=== PATIENT | male | born 1940 | race Caucasian/White ===

== ENCOUNTER 2024-04-01 11:32 | Inpatient (IN) | payer BC ==
[~2024-04-01] VITALS: Ht 170.2 cm; Wt 99.9 kg
[2024-04-01] MEDS: SODIUM CHLORIDE 0.9% (SEPSIS BOLUS) IV ONE (12:09)
[2024-04-01] MEDS ORDERED: VANCOMYCIN 1000MG/250ML 250 ML IV SCH (12:15)
[2024-04-01] MEDS: VANCOMYCIN 1G PREMIX 200 ML IV NR (12:23)
[2024-04-01] MEDS: ONDANSETRON HCL 4MG/2ML INJ IV STA (12:23)
[2024-04-01 13:25] LABS: LACTIC ACID 3.2 mmol/L (0.4-2.0)
[2024-04-01 13:29] LABS: PROTHROMBIN TIME 52.1 sec (9.6-11.0)
[2024-04-01 13:47] LABS: INR 5.3
[2024-04-01] MEDS: PIPERACILLIN/TAZO 3.375G/100ML 100 ML IV SCH (14:19)
[2024-04-01 18:02] LABS: BASOPHILS % 0.6 % (0.0-2.0); EOSINOPHILS % 0.7 % (0.0-5.0); HEMATOCRIT. 45.2 % (42.0-52.0); HEMOGLOBIN. 14.2 g/dL (14.0-18.0); LYMPHOCYTES % 16.1 % (20.0-50.0); MEAN CORPUSCULAR HEMOGLOBIN 27.6 pg (28.0-32.0); MEAN CORPUSCULAR HGB CONC 31.4 g/dL (31.0-37.0); MEAN CORPUSCULAR VOLUME 88.1 fL (80.0-94.0); MEAN PLATELET VOLUME 9.2 fl (7.4-10.4); MONOCYTES % 7.8 % (2.0-8.0); NEUTROPHILS % 74.8 % (40.0-76.0); PLATELET 200 x1000/uL (130-400); RED BLOOD CELL COUNT 5.13 mill/uL (4.7-6.1); RED CELL DISTRIBUTION WIDTH 14.1 % (11.6-14.6); WHITE BLOOD COUNT 10.8 x1000/uL (4.5-11.0)
[2024-04-01 18:13] LABS: CHLORIDE 102 mEq/L (98-107); POTASSIUM 4.7 mEq/L (3.5-5.1); SODIUM 137 mEq/L (136-145)
[2024-04-01 18:14] LABS: CARBON DIOXIDE 24 mEq/L (21-32)
[2024-04-01 18:19] LABS: GLUCOSE 98 mg/dL (70-105); UREA NITROGEN BLOOD 60 mg/dL (9-23)
[2024-04-01 18:20] LABS: TROPONIN I HIGH SENSITIVITY 32 ng/L (3.0-53)
[2024-04-01 18:34] LABS: CREATININE 7.3 mg/dL (0.6-1.3)
[2024-04-01 21:15] LABS: CLARITY URINE CLEAR (CLEAR); COLOR URINE YELLOW (YELLOW); GLUCOSE URINE 2+ (NEGATIVE); KETONES URINE NEGATIVE (NEGATIVE); LEUKOCYTE ESTERASE URINE NEGATIVE (NEGATIVE); NITRITE URINE NEGATIVE (NEGATIVE); OCCULT BLOOD URINE NEGATIVE (NEGATIVE); PH URINE 7.5 (4.5-8.0); PROTEIN URINE 2+ (NEGATIVE); SPECIFIC GRAVITY URINE 1.013 (1.005-1.030); UROBILINOGEN URINE 0.2 E.U./dL (0.2-1.0)
[2024-04-01 21:30] LABS: BACTERIA URINE NONE SEEN; RBC URINE NONE SEEN /hpf (0-2); SQUAMOUS EPITHELIAL CELL URINE RARE /lpf (RARE/1+); WBC URINE 0-2 /hpf (0-2)
[2024-04-01 21:46] LABS: TROPONIN I HIGH SENSITIVITY 36 ng/L (3.0-53)
[2024-04-01] MEDS ORDERED: IPRATROPIUM/ALBUTEROL 0.5-3(2.5)MG/3ML NEB HHN PRN (22:00)
[2024-04-01] MEDS ORDERED: ONDANSETRON HCL 4MG/2ML INJ IV PRN (22:00)
[2024-04-01] MEDS ORDERED: ACETAMINOPHEN 325MG TABLET PO PRN (22:00)
[2024-04-01] MEDS ORDERED: HYDROCODONE/ACETAMINOPHEN 5/325MG TABLET PO PRN (22:00)
[2024-04-01] MEDS ORDERED: ENOXAPARIN 30MG/0.3ML SYR SUBCUT SCH (22:15)
[2024-04-01 23:45] VITALS: BP 119/62; PULSE 73; RESP 19; TEMP 36.3068
[2024-04-02] VITALS (8 sets, daily range): BP systolic 118–151; BP diastolic 64–74; PULSE 64–82; RESP 17–18; TEMP 36.114–36.61404; O2SAT 97–99
[2024-04-02] MEDS ORDERED: TAMS-11 PO (03:43)
[2024-04-02] MEDS ORDERED: CHOL400D7 PO (03:43)
[2024-04-02] MEDS ORDERED: EMPA10TA PO (03:43)
[2024-04-02] MEDS ORDERED: SERT-112 PO (03:43)
[2024-04-02] MEDS ORDERED: POTA-354 PO (03:43)
[2024-04-02] MEDS ORDERED: SEVE800T8 PO (03:43)
[2024-04-02] MEDS ORDERED: FURO80TA3 PO (03:43)
[2024-04-02] MEDS ORDERED: LOVA40TA73 PO (03:43)
[2024-04-02] MEDS ORDERED: WARF-53 PO (03:43)
[2024-04-02] MEDS ORDERED: CLOP75TA33 PO (03:43)
[2024-04-02] MEDS ORDERED: LEVO50TA8 PO (03:43)
[2024-04-02] MEDS ORDERED: FINA5TAB11 PO (03:43)
[2024-04-02] MEDS ORDERED: NALOXONE HCL 0.4MG/ML VIAL IV PRN (08:00)
[2024-04-02] MEDS ORDERED: ENOXAPARIN 30MG/0.3ML SYR SUBCUT SCH (09:00)
[2024-04-02] MEDS ORDERED: DEXTROSE 50% WATER 50ML SYRINGE IV PRN (11:00)
[2024-04-02] MEDS: BLOOD SUGAR DIAGNOSTIC STRIP TEST SCH (12:10)
[2024-04-02] MEDS: INSULIN LISPRO 100 UNITS/ML SUBCUT SCH (12:40)
[2024-04-02 12:48] LABS: BASOPHILS % 0.7 % (0.0-2.0); EOSINOPHILS % 1.8 % (0.0-5.0); HEMATOCRIT. 42.8 % (42.0-52.0); HEMOGLOBIN. 13.8 g/dL (14.0-18.0); LYMPHOCYTES % 13.1 % (20.0-50.0); MEAN CORPUSCULAR HEMOGLOBIN 28.1 pg (28.0-32.0); MEAN CORPUSCULAR HGB CONC 32.3 g/dL (31.0-37.0); MEAN CORPUSCULAR VOLUME 87.2 fL (80.0-94.0); MEAN PLATELET VOLUME 9.4 fl (7.4-10.4); MONOCYTES % 7.3 % (2.0-8.0); NEUTROPHILS % 77.1 % (40.0-76.0); PLATELET 178 x1000/uL (130-400); RED BLOOD CELL COUNT 4.91 mill/uL (4.7-6.1); WHITE BLOOD COUNT 9.6 x1000/uL (4.5-11.0)
[2024-04-02 13:13] LABS: CALCIUM 9.3 mg/dL (8.7-10.4); CREATINE KINASE MB FRACTION 5.6 ng/mL (0.5-3.6)
[2024-04-02 14:15] LABS: CREATININE 7.8 mg/dL (0.6-1.3)
[2024-04-02] MEDS: SERTRALINE HCL 100MG TABLET PO SCH (15:36)
[2024-04-02 15:54] LABS: *AMPHETAMINES SCREEN URINE NEGATIVE (NEGATIVE); *BARBITURATES SCREEN URINE NEGATIVE (NEGATIVE); *BENZODIAZEPINES SCREEN URINE NEGATIVE (NEGATIVE); *COCAINE SCREEN URINE NEGATIVE (NEGATIVE); METHADONE URINE SCREEN NEGATIVE (NEGATIVE)
[2024-04-02 15:55] LABS: CANNABINOID URINE SCREEN NEGATIVE (NEGATIVE); ECSTASY MDMA SCREEN URINE NEGATIVE (NEGATIVE); OPIATES URINE SCREEN NEGATIVE (NEGATIVE); PHENCYCLIDINE URINE SCREEN NEGATIVE (NEGATIVE)
[2024-04-02] MEDS: PHYTONADIONE 10MG/ML INJ SUBCUT NR (18:00)
[2024-04-02] MEDS: FINASTERIDE 5MG TABLET PO SCH (18:28)
[2024-04-02] MEDS: TAMSULOSIN HCL 0.4MG SR CAPSULE PO SCH (18:31)
[2024-04-02 21:39] LABS: CORTISOL 17.9 ucg/dL
[2024-04-02 21:43] LABS: TRIOIODOTHYRONINE TOTAL 0.36 ng/ml (0.60-1.81)
[2024-04-02] MEDS: ATORVASTATIN CALCIUM 40MG TABLET PO SCH (22:23)
[2024-04-03] VITALS (11 sets, daily range): BP systolic 105–136; BP diastolic 68–94; PULSE 72–78; RESP 16–20; TEMP 36.28068–36.50292; O2SAT 97–99
[2024-04-03 06:06] LABS: BASOPHILS % 0.7 % (0.0-2.0); EOSINOPHILS % 2.4 % (0.0-5.0); HEMATOCRIT. 40.8 % (42.0-52.0); HEMOGLOBIN. 12.9 g/dL (14.0-18.0); LYMPHOCYTES % 13.6 % (20.0-50.0); MEAN CORPUSCULAR HEMOGLOBIN 27.8 pg (28.0-32.0); MEAN CORPUSCULAR HGB CONC 31.7 g/dL (31.0-37.0); MEAN CORPUSCULAR VOLUME 87.5 fL (80.0-94.0); MEAN PLATELET VOLUME 9.1 fl (7.4-10.4); MONOCYTES % 8.6 % (2.0-8.0); NEUTROPHILS % 74.7 % (40.0-76.0); PLATELET 173 x1000/uL (130-400); RED BLOOD CELL COUNT 4.66 mill/uL (4.7-6.1); RED CELL DISTRIBUTION WIDTH 14.1 % (11.6-14.6); WHITE BLOOD COUNT 12.5 x1000/uL (4.5-11.0)
[2024-04-03 06:15] LABS: CHLORIDE 99 mEq/L (98-107); POTASSIUM 4.6 mEq/L (3.5-5.1); SODIUM 136 mEq/L (136-145)
[2024-04-03 06:16] LABS: CARBON DIOXIDE 22 mEq/L (21-32)
[2024-04-03 06:17] LABS: CALCIUM 9.4 mg/dL (8.7-10.4)
[2024-04-03 06:21] LABS: GLUCOSE 150 mg/dL (70-105)
[2024-04-03 06:22] LABS: UREA NITROGEN BLOOD 69 mg/dL (9-23)
[2024-04-03 06:24] LABS: PHOSPHORUS 7.5 mg/dL (2.5-4.9)
[2024-04-03 06:26] LABS: CREATININE 8.5 mg/dL (0.6-1.3)
[2024-04-03] MEDS: LEVOTHYROXINE SODIUM 50MCG TABLET PO SCH (06:55)
[2024-04-03] MEDS: MAGNESIUM GLUCONATE 500MG TABLET PO SCH (11:58)
[2024-04-03] MEDS: SEVELAMER CARBONATE 800 MG TABLET PO SCH (12:42)
[2024-04-03 15:19] LABS: INR 3.7; PROTHROMBIN TIME 37.7 sec (9.6-11.0)
[2024-04-04] VITALS (9 sets, daily range): BP systolic 111–157; BP diastolic 61–77; PULSE 73–88; RESP 16–20; TEMP 36.44736–37.00296; O2SAT 97–99
[2024-04-04] MEDS: HYDRALAZINE 20MG/ML VIAL IV PRN (17:57)
[2024-04-05] VITALS (8 sets, daily range): BP systolic 101–159; BP diastolic 66–83; PULSE 74–90; RESP 18–20; TEMP 36.114–36.89184; O2SAT 95–100
[2024-04-05 07:33] LABS: BASOPHILS % 0.6 % (0.0-2.0); HEMATOCRIT. 36.4 % (42.0-52.0); LYMPHOCYTES % 13.8 % (20.0-50.0); MEAN CORPUSCULAR HEMOGLOBIN 28.1 pg (28.0-32.0); MEAN CORPUSCULAR HGB CONC 32.9 g/dL (31.0-37.0); MEAN CORPUSCULAR VOLUME 85.3 fL (80.0-94.0); MEAN PLATELET VOLUME 9.6 fl (7.4-10.4); MONOCYTES % 9.3 % (2.0-8.0); NEUTROPHILS % 73.3 % (40.0-76.0); PLATELET 155 x1000/uL (130-400); RED BLOOD CELL COUNT 4.27 mill/uL (4.7-6.1); RED CELL DISTRIBUTION WIDTH 13.6 % (11.6-14.6); WHITE BLOOD COUNT 9.7 x1000/uL (4.5-11.0)
[2024-04-05 07:46] LABS: POTASSIUM 3.5 mEq/L (3.5-5.1)
[2024-04-05 07:47] LABS: CALCIUM 8.7 mg/dL (8.7-10.4)
[2024-04-05 09:26] LABS: CREATININE 7.6 mg/dL (0.6-1.3)
[2024-04-06] VITALS (9 sets, daily range): BP systolic 110–143; BP diastolic 65–80; PULSE 76–88; RESP 18–20; TEMP 36.16956–37.00296; O2SAT 97–99
[2024-04-06 07:06] LABS: BASOPHILS % 0.7 % (0.0-2.0); EOSINOPHILS % 4.3 % (0.0-5.0); HEMATOCRIT. 35.4 % (42.0-52.0); HEMOGLOBIN. 11.7 g/dL (14.0-18.0); LYMPHOCYTES % 16.9 % (20.0-50.0); MEAN CORPUSCULAR HEMOGLOBIN 27.9 pg (28.0-32.0); MEAN CORPUSCULAR VOLUME 84.5 fL (80.0-94.0); MEAN PLATELET VOLUME 9.3 fl (7.4-10.4); MONOCYTES % 10.1 % (2.0-8.0); PLATELET 153 x1000/uL (130-400); RED BLOOD CELL COUNT 4.19 mill/uL (4.7-6.1); RED CELL DISTRIBUTION WIDTH 13.4 % (11.6-14.6); WHITE BLOOD COUNT 9.4 x1000/uL (4.5-11.0)
[2024-04-06 07:09] LABS: POTASSIUM 3.8 mEq/L (3.5-5.1)
[2024-04-06 07:11] LABS: CALCIUM 8.9 mg/dL (8.7-10.4)
[2024-04-06 07:24] LABS: CREATININE 8.3 mg/dL (0.6-1.3)
[2024-04-06 16:13] LABS: INR 1.7; PROTHROMBIN TIME 17.8 sec (9.6-11.0)
[2024-04-07] VITALS (7 sets, daily range): BP systolic 130–143; BP diastolic 70–87; PULSE 80–83; RESP 16–20; TEMP 36.33624–36.6696; O2SAT 85–98
[2024-04-07 08:10] LABS: POTASSIUM 3.9 mEq/L (3.5-5.1)
[2024-04-07 08:24] LABS: CREATININE 8.9 mg/dL (0.6-1.3)
[2024-04-07 09:19] LABS: BASOPHILS % 0.9 % (0.0-2.0); EOSINOPHILS % 2.9 % (0.0-5.0); HEMATOCRIT. 35.7 % (42.0-52.0); HEMOGLOBIN. 11.7 g/dL (14.0-18.0); LYMPHOCYTES % 7.6 % (20.0-50.0); MEAN CORPUSCULAR HEMOGLOBIN 27.9 pg (28.0-32.0); MEAN CORPUSCULAR HGB CONC 32.9 g/dL (31.0-37.0); MEAN CORPUSCULAR VOLUME 84.7 fL (80.0-94.0); MEAN PLATELET VOLUME 9.9 fl (7.4-10.4); MONOCYTES % 13.3 % (2.0-8.0); NEUTROPHILS % 75.3 % (40.0-76.0); PLATELET 135 x1000/uL (130-400); RED BLOOD CELL COUNT 4.21 mill/uL (4.7-6.1); RED CELL DISTRIBUTION WIDTH 13.5 % (11.6-14.6); WHITE BLOOD COUNT 6.5 x1000/uL (4.5-11.0)
== END 2024-04-07 16:33 | disposition home or self-care (01) | DRG 64 ==
LOC: ER 12:40 → 8WST 19:47
PROVIDERS: ADMIT Internal Medicine; ATTEND Internal Medicine
PROC: 3E1M39Z Irrigation of Peritoneal Cavity using Dialysate, Percutaneous Approach (ICD-10-PCS; 2024-04-02)
PROC: 3E1M39Z Irrigation of Peritoneal Cavity using Dialysate, Percutaneous Approach (ICD-10-PCS; 2024-04-03)
PROC: 3E1M39Z Irrigation of Peritoneal Cavity using Dialysate, Percutaneous Approach (ICD-10-PCS; 2024-04-04)
PROC: 5A1D70Z Performance of Urinary Filtration, Intermittent, Less than 6 Hours Per Day (ICD-10-PCS; principal; 2024-04-05)
PROC: 3E1M39Z Irrigation of Peritoneal Cavity using Dialysate, Percutaneous Approach (ICD-10-PCS; 2024-04-06)
DX: I61.1 Nontraumatic intracerebral hemorrhage in hemisphere, cortical (principal); J96.21 Acute and chronic respiratory failure with hypoxia; N18.6 End stage renal disease; G93.49 Other encephalopathy; I12.0 Hypertensive chronic kidney disease with stage 5 chronic kidney disease or end stage renal disease; I48.20 Chronic atrial fibrillation, unspecified; E78.5 Hyperlipidemia, unspecified; E11.22 Type 2 diabetes mellitus with diabetic chronic kidney disease; L89.310 Pressure ulcer of right buttock, unstageable; Z20.822 Contact with and (suspected) exposure to COVID-19; D64.9 Anemia, unspecified; E66.9 Obesity, unspecified; R79.1 Abnormal coagulation profile; I25.10 Atherosclerotic heart disease of native coronary artery without angina pectoris; M89.8X9 Other specified disorders of bone, unspecified site; Z86.73 Personal history of transient ischemic attack (TIA), and cerebral infarction without residual deficits; Z95.5 Presence of coronary angioplasty implant and graft; Z99.2 Dependence on renal dialysis; Z79.02 Long term (current) use of antithrombotics/antiplatelets; Z79.84 Long term (current) use of oral hypoglycemic drugs; Z79.899 Other long term (current) drug therapy; Z68.34 Body mass index [BMI] 34.0-34.9, adult
CPT/HCPCS: 36415; 70551; 71045; 71275; 80048; 80305; 81003; 82533; 82550; 82553; 82962; 83036; 83605; 83735; 83880; 84100; 84145; 84480; 84484; 85025; 86850; 86900; 87426; 87804; 90935; 90945; 93005; 97162; 97530; 99291; A4606; A4663; J0360; J1815; J2405; J2543; J3370; J7030